=== PATIENT | female | born 1975 | race Asian ===

== ENCOUNTER 2024-07-31 10:23 | Emergency (ER) | payer BC ==
[~2024-07-31] VITALS: Ht 157.5 cm; Wt 64.0 kg
[2024-07-31 10:27] VITALS: O2SAT 98
[2024-07-31 11:04] VITALS: BP 112/84; PULSE 81; RESP 16; TEMP 36.8; O2SAT 98
== END 2024-07-31 11:03 | disposition home or self-care (01) ==
LOC: ER 10:23
DX: F41.9 Anxiety disorder, unspecified (principal)
CPT/HCPCS: 99283